=== PATIENT | male | born 1995 | race Two or more races ===

== ENCOUNTER 2016-07-28 18:40 | Emergency (ER) | payer OTHER ==
[~2016-07-28] VITALS: Ht 167.6 cm; Wt 62.1 kg
[2016-07-28 19:07] VITALS: BP 150/59
[2016-07-28] MEDS ORDERED: KETOROLAC TROMETH 30 MG/ML 1ML VIAL IM ONE (23:15)
[2016-07-28] MEDS ORDERED: NEOMYCIN-BACITRACIN-POLYM UNITDOSE PKG TOP OINT TOP ONE (23:15)
== END 2016-07-28 22:51 | disposition home or self-care (01) ==
LOC: ER 18:40
DX: S46.911A Strain of unspecified muscle, fascia and tendon at shoulder and upper arm level, right arm, initial encounter (principal); X50.9XXA Other and unspecified overexertion or strenuous movements or postures, initial encounter; Y93.89 Activity, other specified; Y99.8 Other external cause status; Y92.39 Other specified sports and athletic area as the place of occurrence of the external cause
CPT/HCPCS: 73000; 73030; 96372; 99284; J1885